=== PATIENT | male | born 1965 | race Caucasian/White ===

== ENCOUNTER 2017-05-07 10:00 | Emergency (ER) | payer OTHER ==
[~2017-05-07] VITALS: Ht 166.4 cm; Wt 92.6 kg
--- NOTE | 2017-05-07 10:14 | NUR ---
PT AMBULATED TO BED 3.
[2017-05-07 10:17] VITALS: BP 137/70
--- NOTE | 2017-05-07 10:17 | NUR ---
PATIENT PRESENTS TO ED WITH RECTAL PAIN . PT STATES HE HAS HEMORRHOIDS .DENIES ANY BLEEDING; DENIES N/V/D; SKIN IS PINK/WARM/DRY; AAOX4 WITH EVEN AND STEADY GAIT; LUNGS CLEAR BL; HR EVEN AND REGULAR; PT DENIES ANY FEVER, CP, SOB, OR COUGH AT THIS TIME; PATIENT STATES PAIN OF 9/10 RECTAL PAIN AT THIS TIME;PATIENT POSITIONED FOR COMFORT; HOB ELEVATED; BEDRAILS UP X2; BED DOWN. ER MD WILL BE NOTIFIED.
--- NOTE | 2017-05-07 10:43 | NUR ---
JANNETH VILLALOBOS AT BEDSIDE.
[2017-05-07] MEDS ORDERED: PHENYLEPHRINE 0.25% 1 EA SUPP RC ONE (10:55)
[2017-05-07] MEDS ORDERED: IBUPROFEN 600 MG TAB PO ONE (10:55)
[2017-05-07] MEDS ORDERED: traMADol 50 MG TAB PO ONE (10:55)
--- NOTE | 2017-05-07 11:03 | NUR ---
ANUSOL.25% WAS NOT LOADED IN THE PHYXIS;PHARMACY STAFF AT THE [facility] PUTTING STOCKS; INFORMED ME HE WILL GO TO PHARMACY AND GET THE MEDICINE AND HE WILL BRING IT TO ER.
[2017-05-07] MEDS ORDERED: PHENYLEPHRINE 0.25% 1 EA SUPP RC SCH (11:05)
--- NOTE | 2017-05-07 11:34 | NUR ---
ER BY BEDSIDE RE-EVALUATING PT
[2017-05-07 11:51] VITALS: BP 134/89
--- NOTE | 2017-05-07 11:51 | NUR ---
Patient discharged with v/s stable. Pt states "my pain is better". Written and verbal after care instructions given and explained. Patient alert, oriented and verbalized understanding of instructions. Ambulatory with steady gait. All questions addressed prior to discharge. ID band removed. Patient advised to follow up with PMD. Rx of ANUSOL AND TRAMADOL given. Patient educated on indication of medication including possible reaction and side effects. Opportunity to ask questions provided and answered.
== END 2017-05-07 11:51 | disposition home or self-care (01) ==
LOC: MED 10:00
DX: K64.4 Residual hemorrhoidal skin tags (principal); Z88.0 Allergy status to penicillin
CPT/HCPCS: 99283

== ENCOUNTER 2017-05-08 15:06 | Emergency (ER) | payer OTHER ==
[~2017-05-08] VITALS: Ht 170.2 cm; Wt 90.7 kg
[2017-05-08 15:14] VITALS: BP 135/80
[2017-05-08] MEDS ORDERED: traMADol 50 MG TAB PO ONE (17:10)
[2017-05-08] MEDS ORDERED: IBUPROFEN 800 MG TAB PO ONE (17:10)
[2017-05-08] MEDS ORDERED: PHENYLEPHRINE 0.25% 1 EA SUPP RC PRN (17:10)
--- NOTE | 2017-05-08 17:30 | NUR ---
PATIENT PRESENTS TO ED WITH PT PRESENTS TO ER W/C/O RECTAL PAIN X3 DAYS. PT STATES HE HAS HX OF HEMORRHOIDS, WAS SEEN IN ER LAST NOC, BUT THE TRAMADOL HE WAS GIVEN DIDN'T HELP AT ALL. DENIES N/V/D; SKIN IS PINK/WARM/DRY; AAOX4 WITH EVEN AND STEADY GAIT; LUNGS CLEAR BL; HR EVEN AND REGULAR; PT DENIES ANY FEVER, CP, SOB, OR COUGH AT THIS TIME; PATIENT STATES PAIN OF 10/10 AT THIS TIME; VSS; PATIENT POSITIONED FOR COMFORT; HOB ELEVATED; BEDRAILS UP X2; BED DOWN. ER MD MADE AWARE OF PT STATUS.
[2017-05-08 18:00] VITALS: BP 132/86
--- NOTE | 2017-05-08 18:00 | NUR ---
Patient discharged with v/s stable. Written and verbal after care instructions given and explained. Patient alert, oriented and verbalized understanding of instructions. Ambulatory with steady gait. All questions addressed prior to discharge. ID band removed. Patient advised to follow up with PMD. Rx of ULTRAM, ANUSOL given. Patient educated on indication of medication including possible reaction and side effects. Opportunity to ask questions provided and answered.
== END 2017-05-08 18:00 | disposition home or self-care (01) ==
LOC: MED 15:06
DX: K64.4 Residual hemorrhoidal skin tags (principal); K62.89 Other specified diseases of anus and rectum; Z88.0 Allergy status to penicillin
CPT/HCPCS: 99283